=== PATIENT | male | born 1955 | race Caucasian/White ===

== ENCOUNTER 2017-11-28 18:34 | Emergency (ER) | payer MEDICAID, OTHER ==
[~2017-11-28] VITALS: Ht 172.7 cm; Wt 91.6 kg
[~2017-11-28 18:34] MED LIST: ASPI81CH43
[2017-11-28 19:13] VITALS: BP 162/90
[2017-11-29] MEDS ORDERED: HYDROcodone-ACET 7.5/325MG TAB PO ONE (00:45)
[2017-11-29] MEDS ORDERED: AMOXICILLIN/CLAVUL 875 MG TAB PO ONE (00:45)
== END 2017-11-29 00:52 | disposition home or self-care (01) ==
LOC: ER 18:34
DX: S81.851A Open bite, right lower leg, initial encounter (principal); I10 Essential (primary) hypertension; F17.210 Nicotine dependence, cigarettes, uncomplicated; W54.0XXA Bitten by dog, initial encounter; Y93.89 Activity, other specified; Y92.89 Other specified places as the place of occurrence of the external cause; Y99.8 Other external cause status; Z79.82 Long term (current) use of aspirin

== ENCOUNTER 2019-01-01 02:33 | Inpatient (IN) | payer MEDICAID | END 2019-01-05 11:29 | disposition home or self-care (01) | LOC: ER 02:33 → TELE 09:08 → TELE-EAST 10:41 | PROC: 0YQ70ZZ Repair Right Femoral Region, Open Approach (ICD-10-PCS; principal; 2019-01-03 14:41) | PROC: 4A023N7 Measurement of Cardiac Sampling and Pressure, Left Heart, Percutaneous Approach (ICD-10-PCS; 2019-01-03 14:41) | PROC: B2111ZZ Fluoroscopy of Multiple Coronary Arteries using Low Osmolar Contrast (ICD-10-PCS; 2019-01-03 14:41) | DX: K41.30 Unilateral femoral hernia, with obstruction, without gangrene, not specified as recurrent (principal); I21.4 Non-ST elevation (NSTEMI) myocardial infarction; I50.9 Heart failure, unspecified; F15.10 Other stimulant abuse, uncomplicated; K40.20 Bilateral inguinal hernia, without obstruction or gangrene, not specified as recurrent; I10 Essential (primary) hypertension; R60.9 Edema, unspecified ==

== ENCOUNTER 2021-03-07 15:10 | Emergency (ER) | payer MEDICAID ==
[~2021-03-07] VITALS: Ht 172.7 cm; Wt 93.9 kg
[2021-03-07 16:50] VITALS: BP 161/102
== END 2021-03-07 17:55 | disposition home or self-care (01) ==
LOC: ER 15:10
DX: S46.001A Unspecified injury of muscle(s) and tendon(s) of the rotator cuff of right shoulder, initial encounter (principal); M19.011 Primary osteoarthritis, right shoulder; E11.9 Type 2 diabetes mellitus without complications; I10 Essential (primary) hypertension; F17.210 Nicotine dependence, cigarettes, uncomplicated; Z79.82 Long term (current) use of aspirin; Z88.8 Allergy status to other drugs, medicaments and biological substances; V19.9XXA Pedal cyclist (driver) (passenger) injured in unspecified traffic accident, initial encounter; Y93.89 Activity, other specified; Y92.89 Other specified places as the place of occurrence of the external cause; Y99.8 Other external cause status
CPT/HCPCS: 73030

== ENCOUNTER 2021-03-13 03:56 | Emergency (ER) | payer MEDICAID ==
[~2021-03-13] VITALS: Ht 172.7 cm; Wt 93.9 kg
[2021-03-13] MEDS ORDERED: MORPHINE SULFATE 4 MG/ML SYR/VIAL IV ONE (06:15)
[2021-03-13] MEDS ORDERED: ONDANSETRON HCL 4 MG/2 ML VIAL IV ONE (06:15)
[2021-03-13 07:10] LABS: Basophils # (auto) 0.1 10 ^3/uL (0-0.2); Basophils % (auto) 0.9 % (0.0-2.0); Eosinophils # (auto) 0.2 10 ^3/uL (0-0.8); Hematocrit 46.8 % (41.0-53.0); Hemoglobin 16.2 g/dL (13.5-17.5); Lymphocytes # (auto) 2.4 10 ^3/uL (0.4-5.4); Lymphocytes % (auto) 24.1 % (10.0-50.0); Mean Corpuscular Hemoglobin 30.8 pg (28.0-32.0); Mean Corpuscular Hgb Conc. 34.7 g/dL (32.0-36.0); Mean Corpuscular Volume 88.8 fL (80.0-100.0); Monocytes # (auto) 0.9 10 ^3/uL (0-1.3); Monocytes % (auto) 8.9 % (0.0-12.0); Neutrophils # (auto) 6.5 10 ^3/uL (1.6-8.6); Neutrophils % (auto) 64.1 % (37.0-80.0); Nucleated Red Blood Cells % 0.1 %; Red Blood Cells 5.27 10^6/uL (4.5-5.90); Red Cell Distribution Width 13.5 % (11.8-14.3); White Blood Cell 10.1 10^3/uL (4.4-10.8)
[2021-03-13 07:38] LABS: Albumin 3.7 g/dL (3.4-5.0); Anion Gap 8 (5-15); Blood Urea Nitrogen 16 mg/dL (7-18); Calcium 9.5 mg/dL (8.5-10.1); Carbon Dioxide 25 mmol/L (21-32); Chloride 101 mmol/L (98-107); Glucose 115 mg/dL (74-106); Potassium 3.9 mmol/L (3.5-5.1); Sodium 134 mmol/L (136-145)
[2021-03-13 07:42] LABS: Alanine Aminotransferase 53 U/L (16-61); Alkaline Phosphatase 108 U/L (45-117); Aspartate Aminotransferase 31 U/L (15-37); BUN/Creatinine Ratio 13.8; Bilirubin, Total 0.4 mg/dL (0.2-1.0); GFR African American 82 mL/min; GFR Non-African American 68 mL/min; Total Protein 8.3 g/dL (6.4-8.2)
[2021-03-13 09:34] LABS: Urine Amorphous Crystal FEW /hpf (None Seen); Urine Bacteria NONE SEEN /hpf (None Seen); Urine Blood Negative /uL (Negative); Urine Specific Gravity 1.029 (1.001-1.035); Urine WBC 14 /hpf (0 - 3)
[2021-03-13 10:00] VITALS: BP 166/86
== END 2021-03-13 10:46 | disposition home or self-care (01) ==
LOC: ER 03:56
DX: K40.90 Unilateral inguinal hernia, without obstruction or gangrene, not specified as recurrent (principal); I10 Essential (primary) hypertension; E78.5 Hyperlipidemia, unspecified; E11.9 Type 2 diabetes mellitus without complications; F17.210 Nicotine dependence, cigarettes, uncomplicated; Z86.73 Personal history of transient ischemic attack (TIA), and cerebral infarction without residual deficits; Z79.82 Long term (current) use of aspirin; Z79.899 Other long term (current) drug therapy
CPT/HCPCS: 36415; 74176; 76705; 80053; 81001; 83690; 83880; 84484; 85025; 93005; 96374; 96375; 99285; J2270; J2405

== ENCOUNTER → 2023-05-25 | Outpatient (CLI) | payer MEDICARE, MEDICAID ==
[2023-05-25 11:36] LABS: Basophils # (auto) 0.1 10 ^3/uL (0-0.2); Eosinophils # (auto) 0.2 10 ^3/uL (0-0.8); Eosinophils % (auto) 3.3 % (0.0-7.0); Hemoglobin 17.1 g/dL (13.5-17.5); Lymphocytes # (auto) 2.4 10 ^3/uL (0.4-5.4); Lymphocytes % (auto) 32.2 % (10.0-50.0); Mean Corpuscular Hemoglobin 30.2 pg (28.0-32.0); Mean Corpuscular Hgb Conc. 34.2 g/dL (32.0-36.0); Mean Corpuscular Volume 88.4 fL (80.0-100.0); Monocytes # (auto) 0.6 10 ^3/uL (0-1.3); Monocytes % (auto) 7.6 % (0.0-12.0); Neutrophils # (auto) 4.2 10 ^3/uL (1.6-8.6); Neutrophils % (auto) 55.9 % (37.0-80.0); Nucleated Red Blood Cells % 0.5 %; Red Blood Cells 5.65 10^6/uL (4.5-5.90); Red Cell Distribution Width 13.2 % (11.8-14.3); White Blood Cell 7.5 10^3/uL (4.4-10.8)
[2023-05-25 11:38] LABS: Urine Bacteria NONE SEEN /hpf (None Seen); Urine Blood Negative /uL (Negative); Urine Clarity Clear (Clear); Urine Color Yellow (Yellow); Urine Protein, UAD TRACE (Negative); Urine Specific Gravity 1.025 (1.001-1.035); Urine Urobilinogen Normal (Negative); Urine WBC 2 /hpf (0 - 3); Urine pH 5.5 (5.0-8.0)
[2023-05-25 11:59] LABS: Creatinine, Urine 210.64 mg/dL (30.0-125.0)
[2023-05-25 12:03] LABS: Alanine Aminotransferase 36 U/L (7-40); Albumin 4.6 g/dL (3.2-4.8); Alkaline Phosphatase 108 U/L (46-116); Anion Gap 6 (5-15); Aspartate Aminotransferase 17 U/L (13-40); BUN/Creatinine Ratio 9.8 (10.0-20.0); Bilirubin, Total 0.9 mg/dL (0.2-1.0); Blood Urea Nitrogen 11 mg/dL (9-23); Calcium 9.6 mg/dL (8.5-10.1); Carbon Dioxide 28 mmol/L (20-30); Chloride 102 mmol/L (98-107); Cholesterol 276 mg/dL (< 200); Glucose 140 mg/dL (74-106); HDL Cholesterol 48 mg/dL (40-59); LDL Cholesterol 179 mg/dL (< 100); Potassium 4.3 mmol/L (3.5-5.1); Sodium 136 mmol/L (136-145); Total Protein 7.7 g/dL (5.7-8.2); Triglycerides 297 mg/dL (< 150)
[2023-05-26 07:07] LABS: RPR Non Reactive (Non Reactive)
[2023-05-26 12:06] LABS: Anti-Nuclear Antibody Direct Negative (Negative)
[2023-05-26 12:55] LABS: Hepatitis B Surface Antigen Negative (Negative); Hepatitis C Antibody Negative (Negative)
[2023-05-26 13:03] LABS: Hepatitis B Core Total AB Positive (Negative)
[2023-05-26 13:04] LABS: Hepatitis B Surface Antibody Positive (Negative)
[2023-05-26 13:06] LABS: Hepatitis A Total Antibody Positive (Negative)
[2023-05-26 14:06] LABS: Chlamydia Trachomatis, NAA Negative (Negative); Neisseria gonorrhoeae, NAA Negative (Negative)
== END | disposition home or self-care (01) ==
LOC: LAB 10:40
PROVIDERS: ATTEND Student in an Organized Health Care Education/Training Program
DX: Z12.11 Encounter for screening for malignant neoplasm of colon (principal); Z00.01 Encounter for general adult medical examination with abnormal findings; E11.69 Type 2 diabetes mellitus with other specified complication; E66.01 Morbid (severe) obesity due to excess calories; E78.2 Mixed hyperlipidemia; I10 Essential (primary) hypertension
CPT/HCPCS: 36415; 80053; 80061; 81001; 82043; 82570; 83036; 85025; 86038; 86592; 86703; 86704; 86706; 86708; 86803; 87340

== ENCOUNTER 2023-09-05 09:00 | Inpatient (IN) | payer MEDICARE, MEDICAID ==
[~2023-09-05] VITALS: Ht 167.6 cm; Wt 90.9 kg
[2023-09-05 09:25] LABS: Basophils # (auto) 0.1 10 ^3/uL (0-0.2); Eosinophils # (auto) 0.2 10 ^3/uL (0-0.8); Eosinophils % (auto) 3.2 % (0.0-7.0); Hematocrit 49.3 % (41.0-53.0); Hemoglobin 16.7 g/dL (13.5-17.5); Lymphocytes # (auto) 2.3 10 ^3/uL (0.4-5.4); Lymphocytes % (auto) 30.7 % (10.0-50.0); Mean Corpuscular Hemoglobin 29.7 pg (28.0-32.0); Mean Corpuscular Hgb Conc. 33.9 g/dL (32.0-36.0); Mean Corpuscular Volume 87.6 fL (80.0-100.0); Monocytes # (auto) 0.6 10 ^3/uL (0-1.3); Monocytes % (auto) 8.5 % (0.0-12.0); Neutrophils # (auto) 4.3 10 ^3/uL (1.6-8.6); Neutrophils % (auto) 56.6 % (37.0-80.0); Nucleated Red Blood Cells % 0.1 %; Red Blood Cells 5.62 10^6/uL (4.5-5.90); White Blood Cell 7.5 10^3/uL (4.4-10.8)
[2023-09-05] MEDS: ASPirin 325 MG TAB PO ONE (09:26)
[2023-09-05] MEDS: NITROGLYCERIN 0.4 MG SL TAB SL ONE (09:31)
[2023-09-05 09:34] LABS: Chloride 104 mmol/L (98-107); Potassium 4.4 mmol/L (3.5-5.1); Sodium 134 mmol/L (136-145)
[2023-09-05 09:35] LABS: Anion Gap 5 (5-15); Calcium 9.5 mg/dL (8.5-10.1); Carbon Dioxide 25 mmol/L (20-30)
[2023-09-05 09:40] LABS: BUN/Creatinine Ratio 10.9 (10.0-20.0); Blood Urea Nitrogen 12 mg/dL (9-23); Glucose 220 mg/dL (74-106)
[2023-09-05] MEDS: ENOXAPARIN SOD 100 MG/1 ML SYRINGE SC ONE (10:56)
[2023-09-05] MEDS ORDERED: DEXTROSE (50%) 50ML SYRG IV PRN (12:00)
[2023-09-05] MEDS ORDERED: MORPHINE SULFATE INJ 2 MG/ml SYRG IV PRN (12:00)
[2023-09-05] MEDS ORDERED: NITROGLYCERIN 0.4 MG SL TAB SL PRN (12:00)
[2023-09-05] MEDS ORDERED: ONDANSETRON HCL 4 MG/2 ML VIAL IV PRN (12:00)
[2023-09-05] MEDS: ATORVASTATIN 20 MG TAB PO ONE (12:37)
[2023-09-05] MEDS: LISINOPRIL 20 MG TAB PO ONE (12:38)
[2023-09-05 12:42] LABS: Prothrombin Time 10.5 sec (9.3-11.8)
[2023-09-05 12:51] LABS: Urine Bacteria NONE SEEN /hpf (None Seen); Urine Blood Negative /uL (Negative); Urine Clarity Clear (Clear); Urine Color Yellow (Yellow); Urine Hyaline Cast FEW /lpf (0 - 2); Urine Protein, UAD TRACE (Negative); Urine Specific Gravity 1.032 (1.001-1.035); Urine WBC 7 /hpf (0 - 3); Urine pH 5.5 (5.0-8.0)
[2023-09-05 12:55] LABS: Amphetamine Screen, Urine Pos (NEGATIVE); Barbiturate Scree,Urine Neg (NEGATIVE); Benzodiazephine Screen, Urine Neg (NEGATIVE); Cocaine Screen, Urine Neg (NEGATIVE); Opiate Scree,Urine Neg (NEGATIVE)
[2023-09-05 12:56] LABS: Cannabinoid Screen, Urine Neg (NEGATIVE); Phencyclidine Screen, Urine Neg (NEGATIVE)
[2023-09-05 13:17] LABS: Alanine Aminotransferase 32 U/L (7-40); Alkaline Phosphatase 141 U/L (46-116); Triglycerides 159 mg/dL (< 150)
[2023-09-05 13:18] LABS: Albumin 4.5 g/dL (3.2-4.8); Anion Gap 7 (5-15); Aspartate Aminotransferase 26 U/L (13-40); BUN/Creatinine Ratio 17.3 (10.0-20.0); Bilirubin, Total 0.7 mg/dL (0.2-1.0); Blood Urea Nitrogen 19 mg/dL (9-23); Calcium 9.7 mg/dL (8.5-10.1); Carbon Dioxide 23 mmol/L (20-30); Chloride 104 mmol/L (98-107); Cholesterol 239 mg/dL (< 200); Glucose 225 mg/dL (74-106); HDL Cholesterol 46 mg/dL (40-59); LDL Cholesterol 172 mg/dL (< 100); Potassium 4.7 mmol/L (3.5-5.1); Sodium 134 mmol/L (136-145); Total Protein 7.1 g/dL (5.7-8.2)
[2023-09-05 13:26] LABS: INR 1.02 (0.9-1.15); Partial Thromboplastin Time 35.1 SEC (24.5-34.5); Prothrombin Time 10.7 sec (9.3-11.8)
[2023-09-05 13:38] LABS: Magnesium 1.9 mg/dL (1.6-2.6)
[2023-09-05 15:14] LABS: Erythrocyte Sedimentation Rate 18 mm/hr (0-20)
[2023-09-05] MEDS: METOPROLOL TARTRATE 25 MG TAB PO ONE (16:04)
[2023-09-05] MEDS: HEPARIN DRIP/D5W 100UNITS/ML 250 ML IV SCH (16:46)
[2023-09-05] MEDS: ACCU-CHEK COMFORT CURVE STRIP VI SCH (17:37)
[2023-09-05] MEDS: InsuLIN REG 1unit/0.01ml Soln (100units/ml) SC SCH (17:41)
[2023-09-05 18:56] VITALS: PULSE 63; RESP 17; O2SAT 95
[2023-09-05] MEDS: METOPROLOL TARTRATE 25 MG TAB PO SCH (21:50)
[2023-09-05 23:27] LABS: INR 1.01 (0.9-1.15); Partial Thromboplastin Time 35.3 SEC (24.5-34.5); Prothrombin Time 10.6 sec (9.3-11.8)
[2023-09-06] VITALS (11 sets, daily range): BP systolic 113–132; BP diastolic 56–84; PULSE 55–83; RESP 14–22; TEMP 97.9–98.3; O2SAT 90–97
[2023-09-06 00:07] LABS: Rapid Influenza A Negative (Negative); Rapid Influenza B Negative (Negative)
[2023-09-06 00:08] LABS: COVID19 ANTIGEN SOFIA FIA NEGATIVE (NEGATIVE)
[2023-09-06 01:56] LABS: INR 1.07 (0.9-1.15); Partial Thromboplastin Time 46.6 SEC (24.5-34.5); Prothrombin Time 11.2 sec (9.3-11.8)
[2023-09-06] MEDS: HEPARIN DRIP/D5W 100UNITS/ML 250 ML IV SCH (02:30)
[2023-09-06] MEDS: INSULIN LANTUS (GLARGINE) 1 /0.01ml (100units/ml) SC SCH (06:27)
[2023-09-06 06:40] LABS: Basophils # (auto) 0.1 10 ^3/uL (0-0.2); Basophils % (auto) 0.9 % (0.0-2.0); Eosinophils # (auto) 0.2 10 ^3/uL (0-0.8); Eosinophils % (auto) 2.8 % (0.0-7.0); Hematocrit 45.1 % (41.0-53.0); Hemoglobin 15.4 g/dL (13.5-17.5); Lymphocytes # (auto) 2.8 10 ^3/uL (0.4-5.4); Lymphocytes % (auto) 34.3 % (10.0-50.0); Mean Corpuscular Hgb Conc. 34.2 g/dL (32.0-36.0); Mean Corpuscular Volume 87.6 fL (80.0-100.0); Monocytes # (auto) 0.6 10 ^3/uL (0-1.3); Monocytes % (auto) 7.5 % (0.0-12.0); Neutrophils # (auto) 4.4 10 ^3/uL (1.6-8.6); Neutrophils % (auto) 54.5 % (37.0-80.0); Nucleated Red Blood Cells % 0.1 %; Red Blood Cells 5.14 10^6/uL (4.5-5.90); Red Cell Distribution Width 13.3 % (11.8-14.3); White Blood Cell 8.1 10^3/uL (4.4-10.8)
[2023-09-06 06:53] LABS: Alanine Aminotransferase 33 U/L (7-40); Albumin 4.1 g/dL (3.2-4.8); Alkaline Phosphatase 126 U/L (46-116); Anion Gap 5 (5-15); Aspartate Aminotransferase 35 U/L (13-40); BUN/Creatinine Ratio 20.6 (10.0-20.0); Blood Urea Nitrogen 20 mg/dL (9-23); Calcium 9.3 mg/dL (8.7-10.4); Carbon Dioxide 24 mmol/L (20-30); Chloride 106 mmol/L (98-107); Glucose 195 mg/dL (74-106); Potassium 4.7 mmol/L (3.5-5.1); Sodium 135 mmol/L (136-145)
[2023-09-06 06:54] LABS: Bilirubin, Total 0.5 mg/dL (0.2-1.0); Total Protein 6.6 g/dL (5.7-8.2)
[2023-09-06 06:59] LABS: Magnesium 1.8 mg/dL (1.6-2.6)
[2023-09-06 08:58] LABS: Partial Thromboplastin Time 53.5 SEC (24.5-34.5); Prothrombin Time 10.5 sec (9.3-11.8)
[2023-09-06] MEDS ORDERED: ATOR40TA52 PO (09:20)
[2023-09-06] MEDS ORDERED: AMLO1TAB22 PO (09:20)
[2023-09-06] MEDS ORDERED: GLIP10TA9 PO (09:20)
[2023-09-06] MEDS ORDERED: METF-370 PO (09:20)
[2023-09-06] MEDS: LISINOPRIL 20 MG TAB PO SCH (10:00)
[2023-09-06] MEDS ORDERED: ASPirin 81 mg TAB PO SCH (10:00)
[2023-09-06] MEDS ORDERED: LIDOCAINE 2%HCL (LOCAL ANESTH.) INJ 20ML MDV ONE (10:33)
[2023-09-06] MEDS ORDERED: IODIXANOL 320MG/ML 100ML BTL IV ONE ×2 (10:33→11:05)
[2023-09-06] MEDS ORDERED: ANGIOMAX 250 MG VIAL IV ONE (10:46)
[2023-09-06] MEDS ORDERED: VERAPAMIL 2.5MG/ML INJ 2ML VIAL IV ONE (10:46)
[2023-09-06] MEDS ORDERED: fentaNYL CITRATE 100 MCG/2 ML VL ONE (10:46)
[2023-09-06] MEDS ORDERED: MIDAZOLAM HCL 2MG/2ML 2ml VIAL (1mg/ml) ONE (10:47)
[2023-09-06] MEDS ORDERED: SODIUM CHL 0.9% 50 ML ONE (10:47)
[2023-09-06] MEDS ORDERED: ASPirin 81 mg TAB ONE (11:18)
[2023-09-06] MEDS ORDERED: TICAGRELOR 90 MG TAB ONE (11:19)
[2023-09-06] MEDS ORDERED: EPTIFIBATIDE INJ (2MG/ML) 10ML VIAL IV ONE (11:21)
[2023-09-06] MEDS ORDERED: LISI20TA56 PO (14:33)
[2023-09-06 15:48] LABS: INR 1.09 (0.9-1.15); Partial Thromboplastin Time 46.7 SEC (24.5-34.5); Prothrombin Time 11.4 sec (9.3-11.8)
[2023-09-06] MEDS: TICAGRELOR 90 MG TAB PO SCH (21:11)
[2023-09-06] MEDS: ATORVASTATIN 20 MG TAB PO SCH (21:11)
[2023-09-06] MEDS: HYDROcodone-ACET 5/325MG TAB PO PRN (23:17)
[2023-09-07 05:00] VITALS: BP 122/62; PULSE 67; RESP 20; TEMP 98.7; O2SAT 96
[2023-09-07 05:23] LABS: Basophils # (auto) 0.1 10 ^3/uL (0-0.2); Basophils % (auto) 0.7 % (0.0-2.0); Eosinophils # (auto) 0.2 10 ^3/uL (0-0.8); Eosinophils % (auto) 2.5 % (0.0-7.0); Hematocrit 44.7 % (41.0-53.0); Hemoglobin 15.4 g/dL (13.5-17.5); Lymphocytes # (auto) 2.5 10 ^3/uL (0.4-5.4); Lymphocytes % (auto) 31.3 % (10.0-50.0); Mean Corpuscular Hgb Conc. 34.4 g/dL (32.0-36.0); Mean Corpuscular Volume 87.4 fL (80.0-100.0); Monocytes # (auto) 0.8 10 ^3/uL (0-1.3); Monocytes % (auto) 9.7 % (0.0-12.0); Neutrophils # (auto) 4.4 10 ^3/uL (1.6-8.6); Neutrophils % (auto) 55.8 % (37.0-80.0); Nucleated Red Blood Cells % 0.1 %; Red Blood Cells 5.12 10^6/uL (4.5-5.90); White Blood Cell 7.8 10^3/uL (4.4-10.8)
[2023-09-07 05:43] LABS: Alkaline Phosphatase 120 U/L (46-116); Anion Gap 6 (5-15); Aspartate Aminotransferase 26 U/L (13-40); BUN/Creatinine Ratio 11.5 (10.0-20.0); Bilirubin, Total 0.4 mg/dL (0.2-1.0); Blood Urea Nitrogen 12 mg/dL (9-23); Calcium 9.3 mg/dL (8.7-10.4); Carbon Dioxide 23 mmol/L (20-30); Chloride 105 mmol/L (98-107); Glucose 224 mg/dL (74-106); Magnesium 2.1 mg/dL (1.6-2.6); Sodium 134 mmol/L (136-145); Total Protein 6.7 g/dL (5.7-8.2)
[2023-09-07 06:39] LABS: Alanine Aminotransferase 29 U/L (7-40)
[2023-09-07 08:00] VITALS: PULSE 83; O2SAT 95
[2023-09-07 09:00] VITALS: BP 124/60; PULSE 78; RESP 18; TEMP 98; O2SAT 94
[2023-09-07] MEDS ORDERED: LISI20TA56 PO (09:04)
[2023-09-07] MEDS ORDERED: METF-370 PO (09:04)
[2023-09-07] MEDS ORDERED: METO25TA36 PO (09:04)
[2023-09-07] MEDS ORDERED: ATO40T PO (09:04)
[2023-09-07] MEDS ORDERED: TICA90TA PO (09:04)
[2023-09-07] MEDS ORDERED: ASPI-325 PO (09:04)
[2023-09-07] MEDS: ASPirin 81 mg TAB PO SCH (09:35)
[2023-09-07 11:30] VITALS: BP 122/66; PULSE 67
== END 2023-09-07 12:27 | disposition home or self-care (01) | DRG 322 ==
LOC: EDBD 09:00 → ER 09:00 → TELE 11:59 → TELE-WESTW 09-06 08:44
PROVIDERS: ADMIT Internal Medicine Geriatric Medicine; ATTEND Internal Medicine Geriatric Medicine
PROC: 027034Z Dilation of Coronary Artery, One Artery with Drug-eluting Intraluminal Device, Percutaneous Approach (ICD-10-PCS; principal; 2023-09-06)
PROC: 4A023N7 Measurement of Cardiac Sampling and Pressure, Left Heart, Percutaneous Approach (ICD-10-PCS; 2023-09-06)
PROC: B211YZZ Fluoroscopy of Multiple Coronary Arteries using Other Contrast (ICD-10-PCS; 2023-09-06)
PROC: 3E073PZ Introduction of Platelet Inhibitor into Coronary Artery, Percutaneous Approach (ICD-10-PCS; 2023-09-06)
DX: I21.4 Non-ST elevation (NSTEMI) myocardial infarction (principal); I25.110 Atherosclerotic heart disease of native coronary artery with unstable angina pectoris; E66.9 Obesity, unspecified; E78.2 Mixed hyperlipidemia; I10 Essential (primary) hypertension; F15.10 Other stimulant abuse, uncomplicated; F10.20 Alcohol dependence, uncomplicated; F17.210 Nicotine dependence, cigarettes, uncomplicated; E11.51 Type 2 diabetes mellitus with diabetic peripheral angiopathy without gangrene; Z20.822 Contact with and (suspected) exposure to COVID-19; Z68.32 Body mass index [BMI] 32.0-32.9, adult; Z71.41 Alcohol abuse counseling and surveillance of alcoholic; I25.2 Old myocardial infarction; Z91.199 Patient's noncompliance with other medical treatment and regimen due to unspecified reason; Z88.8 Allergy status to other drugs, medicaments and biological substances; Z86.73 Personal history of transient ischemic attack (TIA), and cerebral infarction without residual deficits; Z83.3 Family history of diabetes mellitus; Z82.49 Family history of ischemic heart disease and other diseases of the circulatory system
CPT/HCPCS: 36415; 71045; 80048; 80053; 80061; 80307; 81001; 82962; 83036; 83735; 83880; 84443; 84484; 85025; 85379; 85610; 85652; 85730; 86141; 86850; 86900; 86901; 87426; 87804; 92941; 93005; 93306; 93458; 93925; 93970; 99152; 99153; 99291; G0378; J1815; J2250; Q9967